=== PATIENT | male | born 1990 | race Two or more races ===

== ENCOUNTER 2017-06-21 09:39 | Emergency (ER) | payer SELFPAY ==
[~2017-06-21] VITALS: Ht 172.7 cm; Wt 62.1 kg
[2017-06-21 09:44] VITALS: Ht 172.7 cm; Wt 62.1 kg
[2017-06-21 10:21] LABS: BASOPHIL % 0.3 % (0-2); PLATELET COUNT 298 x10^3mcL (130-400); RED CELL DISTRIBUTION WIDTH 13.9 % (11.5-14.5)
[2017-06-21 10:36] LABS: CALCIUM 9.6 mg/dL (8.5-10.1); CHLORIDE SERUM 103 mmol/L (98-107); CREATININE SERUM 0.9 mg/dL (0.7-1.3); GFR1 > 60 mL/min; GLUCOSE SERUM 111 mg/dL (74-106); POTASSIUM SERUM 3.9 mmol/L (3.5-5.1); SODIUM SERUM 138 mmol/L (136-145)
[2017-06-21 10:41] LABS: ALBUMIN 4.3 g/dL (3.4-5.0); ALKALINE PHOSPHATASE 74 U/L (46-116); ALT/SGPT 35 U/L (16-63); AMYLASE 140 U/L (25-115); AST/SGOT 19 U/L (15-37); BILIRUBIN TOTAL 0.56 mg/dL (0.20-1.00); LIPASE 149 IU/L (73-393); TOTAL PROTEIN, SERUM 8.5 g/dL (6.4-8.2)
[2017-06-21 10:48] LABS: urine erythrocyte NEGATIVE (NEGATIVE)
[2017-06-21 10:50] LABS: microscopic required? YES
[2017-06-21 10:58] LABS: AMPHETAMINE QUAL UR NONE DETECTED (NEG <=1000)
[2017-06-21 11:53] VITALS: BP 134/78
== END 2017-06-21 11:53 | disposition home or self-care (01) ==
LOC: ED 09:39
PROVIDERS: Emergency Medicine
DX: R11.10 Vomiting, unspecified (principal); R53.1 Weakness
CPT/HCPCS: J2405; J3490; J7030